=== PATIENT | female | born 1990 | race Hispanic/Latino ===

== ENCOUNTER 2021-10-03 05:46 | Day surgery (SDC) | payer BC ==
[2021-10-01 15:08] VITALS: BMI 31.8
[2021-10-02 10:23] LABS: Hemoglobin 13.5 g/dL (12.0-15.5); Mean Corpuscular HGB CONC 31.7 g/dL (32.0-36.0); Mean Corpuscular Hemoglobin 26.2 pg (27.0-33.0); Mean Corpuscular Volume 82.7 fl (81.6-98.3); Mean Platelet Volume 9.8 fl (7.4-10.4); Platelet Count 324 10x3/uL (150-450); RBC Distribution Width 14.8 % (11.5-14.5); Red Blood Cell (RBC) Count 5.15 10x6/uL (3.90-5.03); White Blood Cell (WBC) Count 6.9 10x3/uL (3.5-10.5)
[2021-10-03] MEDS ORDERED: Lidocaine 1% MPF 2 ML VIAL ONE (06:41)
[2021-10-03] MEDS ORDERED: PROPOFOL 20 ML ONE (06:51)
[2021-10-03] MEDS ORDERED: Lidocaine 1% PF 5 ML VIAL ONE (06:52)
[2021-10-03] MEDS ORDERED: Dexamethasone 4 mg/ml Vial ONE (06:52)
[2021-10-03] MEDS ORDERED: Ketorolac Tromethamine 30 MG/ML VIAL ONE ×2 (06:52→08:10)
[2021-10-03] MEDS ORDERED: Fentanyl 100 MCG/2 ML VIAL ONE (06:52)
[2021-10-03] MEDS ORDERED: Ondansetron PF 4 MG/2 ML Vial ONE (06:52)
[2021-10-03] MEDS ORDERED: Dexmedetomidine 200 MCG/2 ML VIAL ONE (06:57)
[2021-10-03] MEDS ORDERED: CEFAZOLIN 1 GM VIAL ONE (06:57)
[2021-10-03] MEDS ORDERED: Oxytocin 10 UNITS/ML VIAL ONE (07:49)
[2021-10-03] MEDS ORDERED: Methylergonovine 0.2 MG/ML VIAL ONE (08:10)
[2021-10-03] MEDS ORDERED: Methylergonovine 0.2 MG TAB PO SCH (08:45)
== END 2021-10-03 09:25 | disposition home or self-care (01) ==
LOC: CSHSDC 05:46
PROVIDERS: ATTEND Obstetrics & Gynecology
PROC: 10D17ZZ Extraction of Products of Conception, Retained, Via Natural or Artificial Opening (ICD-10-PCS; principal; 2021-10-03)
DX: O02.1 Missed abortion (principal); K21.9 Gastro-esophageal reflux disease without esophagitis; E05.00 Thyrotoxicosis with diffuse goiter without thyrotoxic crisis or storm; Z20.822 Contact with and (suspected) exposure to COVID-19
CPT/HCPCS: 36415; 85027; 86850; 86900; 86901; 87811; 88305; J0690; J1100; J1885; J2210; J2405; J2590; J2704; J3010